=== PATIENT | female | born 1960 | race Caucasian/White ===

== ENCOUNTER 2019-06-28 21:36 | Emergency (ER) | payer MEDICAID ==
[~2019-06-28] VITALS: Ht 165.1 cm; Wt 83.9 kg
[2019-06-28 21:37] VITALS: BP 100/55
--- NOTE | 2019-06-28 21:37 | NUR ---
TO BED # 06 VIA WHEELCHAIR
--- NOTE | 2019-06-28 21:38 | NUR ---
PT 59 Y/O FEMALE BIB DAUGHTER FOR GENERALIZED BODY ACHES 9/10 X 2 DAYS. PT ALSO ADMITS TO N/V X 2 DAYS AND FEVER X 1 DAY. PT DENIES COUGH. FEBRILE 101.6. RESPIRATIONS ARE EVEN AND UNLABORED. SKIN IS WARM AND DRY TO TOUCH. COOLING MEASURES IN PLACE. IV STARTED IN R AC 20 G. IV SITE PATENT AND ASYMTOMATIC. DAUGHTER AT [facility]. MED HX: DM, HTN ALLERGIES: ROCHEPIN
[2019-06-28] MEDS ORDERED: NACL 0.9% 1,000 ML IV ONE (21:50)
[2019-06-28] MEDS ORDERED: ACETAMINOPHEN EXTRA STRENGTH 500 MG TAB PO ONE (21:50)
[2019-06-28] MEDS ORDERED: KETOROLAC 30 MG/ML VIAL IVP ONE (21:50)
--- NOTE | 2019-06-28 21:59 | NUR ---
Dr. Woodson examining patient.
[2019-06-28 22:50] LABS: HEMATOCRIT 34.3 % (36-48); HEMOGLOBIN 11.8 g/dL (12.0-16.0); MEAN CORPUSCULAR HEMOGLOBIN 30 pg (27-31); MEAN CORPUSCULAR HGB CONC 34 g/dL (33-37); PLATELET COUNT (AUTO) 180 K/uL (140-450); RED CELL DISTRIBUTION WIDTH 13.1 % (11.6-13.7); WHITE BLOOD COUNT (AUTO) 16.8 K/uL (4.8-10.8)
[2019-06-28 23:03] LABS: ANION GAP 11.9 (8-16); CARBON DIOXIDE 25.3 mmol/L (21-32); CREATININE 1.5 mg/dL (0.6-1.3); POTASSIUM 4.2 mmol/L (3.5-5.1)
[2019-06-28 23:14] LABS: LYMPHOCYTES % (MANUAL) 7 % (20-46); MONOCYTES % (MANUAL) 5 % (5-12)
[2019-06-28] MEDS ORDERED: INSULIN REGULAR, HUMAN 100 UNIT/ML VIAL IVP ONE (23:25)
[2019-06-29 00:53] VITALS: BP 132/67
--- NOTE | 2019-06-29 00:53 | NUR ---
Patient discharged with v/s stable. 5/10 tollerable pain. States feeling relief. Written and verbal after care instructions given and explained. Patient alert, oriented and verbalized understanding of instructions. Ambulatory with steady gait. All questions addressed prior to discharge. ID band removed. Patient advised to follow up with PMD and when to return to ER. Rx of Prednisone, Motrin, Zofran, Tamiflu, and Cipro given. Patient educated on indication of medication including possible reaction and side effects. Opportunity to ask questions provided and answered.
== END 2019-06-28 23:32 | disposition home or self-care (01) ==
LOC: MED 21:36
DX: R11.2 Nausea with vomiting, unspecified (principal); N39.0 Urinary tract infection, site not specified; E11.65 Type 2 diabetes mellitus with hyperglycemia; I10 Essential (primary) hypertension; Z98.890 Other specified postprocedural states
CPT/HCPCS: 36415; 80048; 81002; 82948; 85025; 87804; 96361; 96374; 96375; 99283; J1815; J1885; J7030

== ENCOUNTER 2019-07-01 12:45 | Inpatient (IN) | payer MEDICAID ==
[~2019-07-01] VITALS: Ht 162.6 cm; Wt 83.0 kg
[2019-07-01 12:52] VITALS: BP 123/56
--- NOTE | 2019-07-01 12:59 | NUR ---
PATIENT AMB WITH DAUGHTER TO LOBBY.
[2019-07-01] MEDS ORDERED: THIAMINE 200 MG/2 ML VIAL IM ONE (14:20)
[2019-07-01] MEDS ORDERED: NACL 0.9% 2,000 ML IV SCH (14:20)
[2019-07-01] MEDS ORDERED: INSULIN REGULAR, HUMAN 100 UNIT/ML VIAL IVP ONE ×2 (14:20→17:55)
[2019-07-01 15:25] LABS: EOSINOPHILS % (AUTO) 0.1 % (0.0-4.0); HEMATOCRIT 37.1 % (36-48); HEMOGLOBIN 12.4 g/dL (12.0-16.0); LYMPHOCYTES # (AUTO) 0.5 K/uL (2.5-16.5); LYMPHOCYTES % (AUTO) 3.8 % (20.5-51.1); MEAN CORPUSCULAR HEMOGLOBIN 30 pg (27-31); MEAN CORPUSCULAR HGB CONC 34 g/dL (33-37); MEAN CORPUSCULAR VOLUME 88.2 fL (80-94); MONOCYTES # (AUTO) 0.3 K/uL (0.8-1.0); MONOCYTES % (AUTO) 2.6 % (1.7-9.3); NEUTROPHILS # (AUTO) 12.4 K/uL (1.8-7.7); NEUTROPHILS % (AUTO) 93.5 % (42.2-75.2); PLATELET COUNT (AUTO) 174 K/uL (140-450); RED CELL DISTRIBUTION WIDTH 13.1 % (11.6-13.7); WHITE BLOOD COUNT (AUTO) 13.2 K/uL (4.8-10.8)
[2019-07-01 15:49] LABS: ACETONE, SERUM NEGATIVE (NEGATIVE)
--- NOTE | 2019-07-01 15:54 | NUR ---
ACCU CHECK 401 POST 20U INSULIN IVP. PT REQUEST MEDICATIONS FOR PAIN. DR BEDOLLA AWARE.
[2019-07-01] MEDS ORDERED: METOCLOPRAMIDE 10 MG/2 ML INJ VIAL IVP ONE (15:55)
[2019-07-01] MEDS ORDERED: KETOROLAC 30 MG/ML VIAL IVP ONE (15:55)
[2019-07-01 16:05] LABS: APPEARANCE,URINE CLEAR (CLEAR); BILIRUBIN,URINE NEGATIVE (NEGATIVE); BLOOD, URINE 2+ (NEGATIVE); COLOR,URINE YELLOW (YELLOW); LEUKOCYTE ESTERASE ,URINE NEGATIVE (NEGATIVE); NITRITE, URINE NEGATIVE (NEGATIVE); UGLUCOSE 3+ (NEGATIVE)
[2019-07-01 16:05] LABS: ALBUMIN 2.8 g/dL (3.4-5.0); ANION GAP 16.6 (8-16); ASPARTATE AMINOTRANSFERASE 18 U/L (15-37); CARBON DIOXIDE 24.3 mmol/L (21-32); CHLORIDE 95 mmol/L (98-107); CREATININE 1.5 mg/dL (0.6-1.3); GFR ARICAN-AMERICAN 46 mL/min (>90); MAGNESIUM 2.8 mg/dL (1.8-2.4); POTASSIUM 4.9 mmol/L (3.5-5.1); SODIUM SERUM 131 mmol/L (136-145); TOTAL BILIRUBIN 0.4 mg/dL (0.0-1.0); UREA NITROGEN, BLOOD 50 mg/dL (7-18)
[2019-07-01 16:08] LABS: GLUCOSE 535 mg/dL (74-106)
[2019-07-01 16:39] LABS: WBC,URINE 0-5 /HPF (0-5)
--- NOTE | 2019-07-01 17:52 | NUR ---
ACCUCHECK 391. DR GRAEME HICKS.
[2019-07-01] MEDS ORDERED: PRED20TA5 PO (18:24)
[2019-07-01] MEDS ORDERED: ONDA4TAB PO (18:24)
[2019-07-01] MEDS ORDERED: CIPR500T4 PO (18:24)
[2019-07-01] MEDS ORDERED: GABA100C PO (18:24)
[2019-07-01] MEDS ORDERED: LISI-424 PO (18:24)
[2019-07-01] MEDS ORDERED: HYDR12.516 PO (18:24)
[2019-07-01] MEDS ORDERED: TAM75 PO (18:24)
[2019-07-01] MEDS ORDERED: ONDANSETRON 4 MG/2 ML VIAL IVP PRN (18:25)
[2019-07-01] MEDS ORDERED: HYDROcodone/APAP 7.5/325 MG 1 TAB PO PRN (18:25)
[2019-07-01] MEDS ORDERED: MECLIZINE 25 MG TAB PO PRN (19:15)
[2019-07-01] MEDS ORDERED: DEXTROSE 50% 50 ML SYR IVP PRN (19:15)
[2019-07-01 19:16] LABS: BARBITURATE, URINE NEG. ng/ml (NEG <=200); BENZODIAZEPINE, URINE NEG. ng/mL (NEG <=200); CANNABINOID, URINE NEG. ng/mL (NEG <=50); OPIATE, URINE NEG. ng/mL (NEG <=2000); PHENCYCLIDINE SCREEN,URINE NEG. ng/mL (NEG <=25)
--- NOTE | 2019-07-01 19:20 | NUR ---
Patient will be admitted to care of DR PHAM. Admited to TELE. Will go to [id number]. Belongings list completed. Report to MYRTLE YEN.
[2019-07-01 19:30] VITALS: BP 136/62
[2019-07-01 19:30] LABS: MAGNESIUM 2.8 mg/dL (1.8-2.4); PHOSPHORUS 3.6 mg/dL (2.5-4.9); THYROID STIMULATING HORMONE 0.85 uIU/mL (0.34-3.74)
--- NOTE | 2019-07-01 19:30 | NUR ---
PT ADMITTED TO THE UNIT FROM ED. PATIENT IS AWAKE, ALERT AND ORIENTED. PT ON ROOM AIR. NO SOB OR S/S OF DISTRESS. NO C/O PAIN AT THIS TIME. PT ON TELE MONITORING. BED LOWERED WITH CALL LIGHT WITHIN REACH. WILL CONTINUE TO MONITOR
[2019-07-01 19:40] LABS: PROTHROMBIN TIME 9.8 secs (10.8-13.4)
[2019-07-01 20:19] LABS: COCAINE, URINE NEGATIVE ng/mL (NEG <=300)
[2019-07-01] MEDS: NACL 0.9% 1,000 ML IV SCH (20:47)
[2019-07-01] MEDS: BLOOD GLUCOSE MONITORING 1 DEV DEV FS SCH (20:50)
[2019-07-01] MEDS: DOCUSATE SODIUM 100 MG GELCAP PO SCH (20:52)
[2019-07-01] MEDS: INSULIN LISPRO SLIDING SCALE 100 UNITS/ML VIAL SUBQ PRN (21:00)
[2019-07-01] MEDS ORDERED: METF1000 PO (21:57)
[2019-07-01] MEDS ORDERED: LANTUS SUBQ (21:57)
[2019-07-02] VITALS: BP_SYST 121; BP_SYST 133; BP_DIAS 56; BP_DIAS 64
--- NOTE | 2019-07-02 02:25 | NUR ---
PT AMBULATED TO THE BATHROOM TO VOID. NO S/S OF DISTRESS NOTED
--- NOTE | 2019-07-02 04:30 | NUR ---
PT ASLEEP IN BED. NO S/S OF DISTRESS NOTED
[2019-07-02] MEDS: NACL 0.9% 1,000 ML IV SCH ×3 (04:51→23:16)
[2019-07-02 05:14] VITALS: BP 147/62
[2019-07-02 05:58] LABS: BASOPHILS % (AUTO) 0.1 % (0.0-2.0); HEMATOCRIT 32.3 % (36-48); LYMPHOCYTES # (AUTO) 1.1 K/uL (2.5-16.5); LYMPHOCYTES % (AUTO) 9.4 % (20.5-51.1); MEAN CORPUSCULAR HEMOGLOBIN 30 pg (27-31); MEAN CORPUSCULAR HGB CONC 34 g/dL (33-37); MEAN CORPUSCULAR VOLUME 87.9 fL (80-94); MONOCYTES % (AUTO) 8.2 % (1.7-9.3); NEUTROPHILS # (AUTO) 9.8 K/uL (1.8-7.7); NEUTROPHILS % (AUTO) 82.3 % (42.2-75.2); PLATELET COUNT (AUTO) 159 K/uL (140-450); RED BLOOD CELL COUNT(AUTO) 3.68 MIL/uL (4.20-5.40); RED CELL DISTRIBUTION WIDTH 13.1 % (11.6-13.7); WHITE BLOOD COUNT (AUTO) 11.9 K/uL (4.8-10.8)
[2019-07-02 06:05] LABS: ANION GAP 12.7 (8-16); CARBON DIOXIDE 25.7 mmol/L (21-32); CREATININE 1.1 mg/dL (0.6-1.3); POTASSIUM 4.4 mmol/L (3.5-5.1)
[2019-07-02 06:13] LABS: CHOL/HDL RATIO 7.5 (1-4.5)
[2019-07-02 06:15] LABS: MAGNESIUM 2.7 mg/dL (1.8-2.4)
[2019-07-02] MEDS: BLOOD GLUCOSE MONITORING 1 DEV DEV FS SCH ×4 (06:39→21:21)
[2019-07-02] MEDS: INSULIN LISPRO SLIDING SCALE 100 UNITS/ML VIAL SUBQ PRN ×4 (06:45→21:21)
--- NOTE | 2019-07-02 07:25 | NUR ---
SHIFT REPORT RECEIVED FROM ORTHOPEDIC CAST SPECIALIST NURSE. PT IS RESTING IN BED AT THIS TIME. NO SIGNS OF DISTRESS NOTED. CALL LIGHT IN REACH.
--- NOTE | 2019-07-02 07:29 | NUR ---
PT REPORT GIVEN TO AM NURSE. PT ENDORSED IN STABLE CONDITION
[2019-07-02 08:00] VITALS: BP 156/61
--- NOTE | 2019-07-02 08:42 | NUR ---
PATIENT HAS BEEN SCREENED AND CATEGORIZED HIGH NUTRITION RISK. PATIENT WILL BE SEEN WITHIN 1-2 DAYS OF ADMISSION. 07/02/19-07/03/[address]
[2019-07-02] MEDS: metFORMIN 500 MG TAB PO SCH ×2 (08:52→21:12)
[2019-07-02] MEDS: HYDROCHLOROTHIAZIDE 25 MG TAB PO SCH (08:53)
[2019-07-02] MEDS: LISINOPRIL 5 MG TAB PO SCH (08:53)
[2019-07-02] MEDS: DOCUSATE SODIUM 100 MG GELCAP PO SCH ×2 (08:53→21:12)
[2019-07-02] MEDS: FAMOTIDINE 20 MG TAB PO SCH (08:54)
--- NOTE | 2019-07-02 09:30 | NUR ---
PT IS RESTING IN BED AT THIS TIME. PER PT PT WAS WALKING WITH A SLIGHT UNSTEADY GAIT. NO DISTRESS NOTED. CALL LIGHT IN REACH.
[2019-07-02 12:00] VITALS: BP 148/59
--- NOTE | 2019-07-02 13:08 | NUR ---
PT IS IN BED AT THIS TIME. PT'S FAMILY BE BEDSIDE. NO DISTRESS NOTED OR COMPLAINS OF PAIN REPORTED. CALL LIGHT IN REACH.
--- NOTE | 2019-07-02 15:00 | NUR ---
PT IS IN BED AT THIS TIME. PT'S FAMILY BE BEDSIDE. NO DISTRESS NOTED OR COMPLAINS OF PAIN REPORTED. CALL LIGHT IN REACH.
[2019-07-02 16:00] VITALS: BP 115/50
--- NOTE | 2019-07-02 18:41 | NUR ---
PT IS IN BED AT THIS TIME. NO DISTRESS NOTED OR COMPLAINS OF PAIN REPORTED. CALL LIGHT IN REACH.
--- NOTE | 2019-07-02 19:24 | NUR ---
SHIFT REPORT GIVEN TO CORPORATE PILOT NURSE. PT IS SITTING IN BED. FAMILY BY BEDSIDE. VITAL WITHIN NORMAL LEVELS. CALL LIGHT IN REACH.
--- NOTE | 2019-07-02 19:25 | NUR ---
RECEIVED PT ON BED TALKING TO DAUGHTER AT BEDSIDE, AAOX4, ABLE TO MAKE NEEDS KNOWN, VITAL SIGNS TAKEN, BP SLIGHTLY ELEVATED BUT STABLE, DENIES CHEST PAIN OR SOB, IVF INFUSING WELL, PLAN OF CARE DISCUSSED, SAFETY MEASURES IN PLACE, CALL LIGHT WITHIN REACH.
[2019-07-02 20:00] VITALS: BP 147/62
[2019-07-02] MEDS ORDERED: INSULIN LANTUS 100 UNITS/ML 10 ML VIAL SUBQ SCH (21:00)
[2019-07-02] MEDS ORDERED: GABAPENTIN 100 MG CAP PO SCH (21:00)
--- NOTE | 2019-07-02 21:15 | NUR ---
BLOOD SUGAR CHECKED WITH 325 RESULT, HUMALOG COVERAGE AND DUE LANTUS ADMINISTERED, DUE MEDS TAKEN, SNACK PROVIDED, ALL NEEDS ATTENDED.
--- NOTE | 2019-07-02 22:30 | NUR ---
AMBULATORY TO BR WITH STEADY GAIT, VOIDED FREELY, MONITORED CLOSELY.
[2019-07-02] MEDS: ACETAMINOPHEN 325 MG TAB PO PRN (23:09)
--- NOTE | 2019-07-02 23:10 | NUR ---
PT STARTED HAVING CHILLS AND HR WENT UP TO 130'S BPM, DENIES CHEST PAIN, TEMP-101.2, COOLING MEASURES STARTED, MEDICATED WITH TYLENOL PO, MONITORED CLOSELY.
[2019-07-03] VITALS: BP 157/66
--- NOTE | 2019-07-03 | NUR ---
PT SLEEPING, EASILY AROUSABLE, VITAL SIGNS TAKEN, TEMP-100.1, SR ON TELE, PT STATED FEELING MUCH BETTER, IVF INFUSING WELL, CONTINUE TO MONITOR CLOSELY.
--- NOTE | 2019-07-03 03:00 | NUR ---
ROUNDS MADE, SEEN PT SLEEPING, VISIBLE CHEST RISE AND FALL, NO SIGNS OF DISTRESS, IVF INFUSING WELL, MONITORED CLOSELY.
--- NOTE | 2019-07-03 05:40 | NUR ---
PT SLEEPING, EASILY AROUSABLE, BLOOD SUGAR CHECKED WITH 186 RESULT, WILL GIVE COVERAGE, TEMP-98.7, DENIES ANY PAIN OR SOB, IVF INFUSING WELL, PT WENT BACK TO SLEEP, MONITORED CLOSELY.
[2019-07-03] MEDS: INSULIN LISPRO SLIDING SCALE 100 UNITS/ML VIAL SUBQ PRN ×3 (05:55→17:32)
[2019-07-03] MEDS: BLOOD GLUCOSE MONITORING 1 DEV DEV FS SCH ×3 (06:48→16:42)
--- NOTE | 2019-07-03 07:12 | NUR ---
PT SLEEPING, NO DISTRESS NOTED, BEDSIDE REPORT GIVEN TO MYRTLE ESQUIVEL FOR CONTINUITY OF CARE.
--- NOTE | 2019-07-03 07:23 | NUR ---
RECEIVED BEDSIDE REPORT FROM BUSINESS TRANSFORMATION MANAGER NURSE BONI. PT IS ASLEEP, NO S/S OF DISTRESS. IV SITE R AC 20 G INTACT, INFUSING NS 50 ML/HR. FALL PRECAUTIONS IN PLACE. CALL LIGHT IS WITHIN REACH.
[2019-07-03 07:25] LABS: BASOPHILS % (AUTO) 0.3 % (0.0-2.0); EOSINOPHILS # (AUTO) 0.1 K/uL (0-0.4); EOSINOPHILS % (AUTO) 0.7 % (0.0-4.0); HEMATOCRIT 32.3 % (36-48); HEMOGLOBIN 10.9 g/dL (12.0-16.0); LYMPHOCYTES # (AUTO) 2.1 K/uL (2.5-16.5); LYMPHOCYTES % (AUTO) 17.4 % (20.5-51.1); MEAN CORPUSCULAR HEMOGLOBIN 30 pg (27-31); MEAN CORPUSCULAR HGB CONC 34 g/dL (33-37); MEAN CORPUSCULAR VOLUME 88.6 fL (80-94); MONOCYTES # (AUTO) 1.5 K/uL (0.8-1.0); MONOCYTES % (AUTO) 12.6 % (1.7-9.3); NEUTROPHILS # (AUTO) 8.3 K/uL (1.8-7.7); PLATELET COUNT (AUTO) 154 K/uL (140-450); RED BLOOD CELL COUNT(AUTO) 3.65 MIL/uL (4.20-5.40); RED CELL DISTRIBUTION WIDTH 12.8 % (11.6-13.7); WHITE BLOOD COUNT (AUTO) 12.1 K/uL (4.8-10.8)
[2019-07-03 08:00] VITALS: BP 109/54
[2019-07-03 08:18] LABS: MAGNESIUM 2.3 mg/dL (1.8-2.4); PHOSPHORUS 2.7 mg/dL (2.5-4.9)
[2019-07-03 08:26] LABS: CARBON DIOXIDE 24.8 mmol/L (21-32); POTASSIUM 3.8 mmol/L (3.5-5.1)
[2019-07-03 08:27] LABS: CREATININE 0.9 mg/dL (0.6-1.3)
[2019-07-03] MEDS ORDERED: ATORVASTATIN 20 MG TAB PO SCH (09:00)
[2019-07-03] MEDS: HYDROCHLOROTHIAZIDE 25 MG TAB PO SCH (10:03)
[2019-07-03] MEDS: LISINOPRIL 5 MG TAB PO SCH (10:04)
[2019-07-03] MEDS: FAMOTIDINE 20 MG TAB PO SCH (10:04)
[2019-07-03] MEDS: metFORMIN 500 MG TAB PO SCH (10:05)
[2019-07-03] MEDS: DOCUSATE SODIUM 100 MG GELCAP PO SCH (10:05)
--- NOTE | 2019-07-03 10:11 | NUR ---
AM MEDS ADMINISTERED, PT TOLERATED WELL
--- NOTE | 2019-07-03 10:11 | NUR ---
PT WORKING WITH PHYSICAL THERAPY AT THIS TIME
--- NOTE | 2019-07-03 11:07 | NUR ---
PT HAVING AN ECHO AT THIS TIME
[2019-07-03] MEDS: ACETAMINOPHEN 325 MG TAB PO PRN (11:21)
--- NOTE | 2019-07-03 13:50 | NUR ---
PT IS RESTING COMFORTABLY IN BED, DAUGHTER IS VISITING AT THE BEDSIDE. NO S/S OF DISTRESS.
[2019-07-03] MEDS: NACL 0.9% 1,000 ML IV SCH (15:30)
[2019-07-03 16:00] VITALS: BP 140/63
--- NOTE | 2019-07-03 16:15 | NUR ---
07/03/19 RD INITIAL ASSESSMENT COMPLETED PLEASE REFER TO NUTRITION ASSESSMENT UNDER CARE ACTIVITY FOR ESTIMATED NUTRITIONAL NEEDS. 1. CONTINUE [facility] DIET TOLERATED 2. RD PROVIDED NUTRITION EDUCATION FOR DIABETES. PT AND FAMILY ACCEPTED 3. RD TO FOLLOW-UP 5-7 DAYS, LOW RISK SHAHBAZ [address]
[2019-07-03] MEDS ORDERED: LANTUS SUBQ (17:26)
[2019-07-03] MEDS ORDERED: ATOR20TA40 PO (17:26)
[2019-07-03] MEDS ORDERED: INSULIN LANTUS 100 UNITS/ML 10 ML VIAL SUBQ SCH (21:00)
== END 2019-07-03 19:30 | disposition home or self-care (01) | DRG 420 ==
LOC: MED 12:45 → MTU 18:21
PROVIDERS: ADMIT General Practice; ATTEND General Practice
PROC: B24BZZ4 Ultrasonography of Heart with Aorta, Transesophageal (ICD-10-PCS; principal; 2019-07-03)
DX: E11.65 Type 2 diabetes mellitus with hyperglycemia (principal); I21.A1 Myocardial infarction type 2; N17.0 Acute kidney failure with tubular necrosis; E43 Unspecified severe protein-calorie malnutrition; G93.41 Metabolic encephalopathy; D68.59 Other primary thrombophilia; E11.22 Type 2 diabetes mellitus with diabetic chronic kidney disease; E83.41 Hypermagnesemia; E11.42 Type 2 diabetes mellitus with diabetic polyneuropathy; G90.8 Other disorders of autonomic nervous system; Z68.31 Body mass index [BMI] 31.0-31.9, adult; J45.909 Unspecified asthma, uncomplicated; Z88.8 Allergy status to other drugs, medicaments and biological substances; N18.3 Chronic kidney disease, stage 3 (moderate); E86.0 Dehydration; E87.1 Hypo-osmolality and hyponatremia; I12.9 Hypertensive chronic kidney disease with stage 1 through stage 4 chronic kidney disease, or unspecified chronic kidney disease; Z82.49 Family history of ischemic heart disease and other diseases of the circulatory system; E66.9 Obesity, unspecified; E87.8 Other disorders of electrolyte and fluid balance, not elsewhere classified; M85.80 Other specified disorders of bone density and structure, unspecified site; Z91.19 Patient's noncompliance with other medical treatment and regimen
CPT/HCPCS: 36415; 36600; 71045; 73560; 80048; 80053; 80305; 81001; 82009; 82140; 82803; 82948; 83036; 83605; 83690; 83735; 83880; 84100; 84443; 84484; 85025; 85610; 85730; 87040; 87081; 87086; 93005; 93880; 96361; 96372; 96374; 96375; 97110; 97116; 97161-GP; 97530; 99285; J1644; J1815; J1885; J2765; J3411; J7030; Q0092

== ENCOUNTER 2021-12-30 10:04 | Emergency (ER) | payer OTHER, MEDICAID ==
[~2021-12-30] VITALS: Ht 162.6 cm; Wt 84.4 kg
[~2021-12-30 10:04] MED LIST: ATOR20TA40 PO; GABA100C PO; HYDR12.516 PO; LANTUS SUBQ; LISI5TAB24 PO; METF-1274 PO
[2021-12-30 10:08] VITALS: BP 138/73
--- NOTE | 2021-12-30 10:27 | NUR ---
PT AMBULATED TO ER BED 7
--- NOTE | 2021-12-30 12:00 | NUR ---
61YO FEMALE PT C/O INCREASED SHARP 10/10 SHOULDER BLADE PAIN XTODAY. PT HAS RADIATION DOWN TO ARM. PT STATES SUDDEN CONSISTENT PAIN SINCE December AND HAS BEEN TAKING RX NAPROXEN WITH NO RELIEF. PT DENIES RECENT INJURY OR HEAVY PHYSICAL ACTIVITY. PT ABLE TO LIFT ARM AT SHOULDER LENGTH WITH DISCOMFORT. DENIES LOSS OF SENSATION OR NUMBING. NO VIISBLE INJURY PRESENT. PT DENIES N/V/D , SOB, OR CHEST PAIN. PT AAOX4, NO VISIBLE DISTRESS. RESPIRATIONS EVEN AND UNLABORED. HX: DIABETES ALLERGIES: ROCEPHIN
--- NOTE | 2021-12-30 12:01 | NUR ---
DR CHEN AT BEDSIDE EVALUATING PT
[2021-12-30] MEDS ORDERED: LIDOCAINE 5% 1 EA PATCH TP ONE (12:05)
[2021-12-30] MEDS ORDERED: KETOROLAC 30 MG/ML VIAL IM ONE (12:05)
[2021-12-30] MEDS ORDERED: LID5T TP (12:14)
[2021-12-30] MEDS ORDERED: DIAZ5TAB6 PO ×2 (12:14→12:18)
[2021-12-30] MEDS ORDERED: diazePAM 5 MG TAB PO ONE (12:40)
--- NOTE | 2021-12-30 13:11 | NUR ---
Patient discharged with v/s stable. Written and verbal after care instructions FOR ACUTE BACK PAIN given and explained. Patient alert, oriented and verbalized understanding of instructions. Ambulatory with steady gait. All questions addressed prior to discharge. ID band removed. Patient advised to follow up with PMD. Rx of DIAZEPAM AND LIDOCAINE PATCH given.Opportunity to ask questions provided and answered.
--- NOTE | 2021-12-30 13:12 | NUR ---
The patient's care was reviewed and supervised by Umm Nolasco RN.
[2021-12-30 13:22] VITALS: BP 136/83
== END 2021-12-30 13:11 | disposition home or self-care (01) ==
LOC: MED 10:04
DX: M25.512 Pain in left shoulder (principal); M54.6 Pain in thoracic spine; E11.9 Type 2 diabetes mellitus without complications; Z79.84 Long term (current) use of oral hypoglycemic drugs; Z79.899 Other long term (current) drug therapy; Z88.1 Allergy status to other antibiotic agents
CPT/HCPCS: 96372; 99283; J1885

== ENCOUNTER 2022-01-02 22:14 | Emergency (ER) | payer OTHER, MEDICAID ==
[~2022-01-02] VITALS: Ht 162.6 cm; Wt 83.9 kg
[~2022-01-02 22:14] MED LIST changes: +DIAZ5TAB6 PO; +LID5T TP
[2022-01-02 23:10] VITALS: BP 150/79
--- NOTE | 2022-01-02 23:10 | NUR ---
Note undone in EDM - 01/03/22 at 0700 by [email or web address] 61 Y/O FEMALE BIBS FROM HOME, C/O BACK PAIN, FOR 12 DAYS, NO TRAUMA NOR INJURY. NO REDNESS, BRUISING, OR OBVIOUS DEFORMITY. A/OX4, GCS-15; UNLABORED BREATHING, SPEAKING IN FULL SENTENCES; AMBULATORY W/O ASSISTANCE; SKIN PINK/WARM/DRY. NO PMH/RX NKA
--- NOTE | 2022-01-02 23:10 | NUR ---
61 Y/O FEMALE BIBS FROM HOME, C/O BACK PAIN, FOR 12 DAYS, NO TRAUMA NOR INJURY. NO REDNESS, BRUISING, OR OBVIOUS DEFORMITY. A/OX4, GCS-15; UNLABORED BREATHING, SPEAKING IN FULL SENTENCES; AMBULATORY W/O ASSISTANCE; SKIN PINK/WARM/DRY. HX: OLGA BONILLA
--- NOTE | 2022-01-02 23:13 | NUR ---
TO LOBBY A/W BED AMBULATORY
[2022-01-02] MEDS ORDERED: HYDROcodone/APAP 7.5/325 MG 1 TAB PO ONE (23:45)
[2022-01-02] MEDS ORDERED: KETOROLAC 30 MG/ML VIAL IM ONE (23:45)
[2022-01-02] MEDS ORDERED: NAPR-54 PO (23:46)
[2022-01-03 00:10] VITALS: BP 145/74
--- NOTE | 2022-01-03 00:10 | NUR ---
Patient discharged with v/s stable. Written and verbal after care instructions given and explained. Patient alert, oriented and verbalized understanding of instructions. Ambulatory with steady gait. All questions addressed prior to discharge. ID band removed. Patient advised to follow up with PMD. Rx of NAPROSYN given. Patient educated on indication of medication including possible reaction and side effects. Opportunity to ask questions provided and answered. VSS, A/OX4, AMBULATORY, UNLABORED BREATHING, AND CALM DEMEANOR.
== END 2022-01-03 00:10 | disposition home or self-care (01) ==
LOC: MED 22:14
DX: M54.9 Dorsalgia, unspecified (principal); G89.29 Other chronic pain; E11.9 Type 2 diabetes mellitus without complications; Z88.1 Allergy status to other antibiotic agents; Z79.899 Other long term (current) drug therapy; Z79.4 Long term (current) use of insulin
CPT/HCPCS: 96372; 99283; J1885